=== PATIENT | female | born 1985 | race Caucasian/White ===

== ENCOUNTER 2018-01-31 22:58 | Emergency (ER) | payer MEDICAID, OTHER ==
[~2018-01-31] VITALS: Ht 172.7 cm; Wt 109.6 kg
[~2018-01-31 22:58] MED LIST: METF-414 PO
[2018-01-31 23:34] VITALS: BP 130/69
[2018-02-01] MEDS ORDERED: PREN-55 PO (01:01)
== END 2018-02-01 03:55 ==
LOC: ER 22:58
DX: R30.9 Painful micturition, unspecified (principal); R10.2 Pelvic and perineal pain; E11.9 Type 2 diabetes mellitus without complications; Z90.49 Acquired absence of other specified parts of digestive tract
CPT/HCPCS: 99281; 99285

== ENCOUNTER 2018-02-01 00:51 | Observation (INO) | payer MEDICAID ==
[~2018-02-01] VITALS: Ht 160.4 cm; Wt 94.3 kg
[2018-02-01] MEDS ORDERED: PREN-55 PO (01:01)
[2018-02-01] MEDS ORDERED: DOCUSATE SODIUM 100MG CAPSULE PO NR (02:15)
[2018-02-01] MEDS ORDERED: BISACODYL 10MG SUPP PR NR (03:00)
[2018-02-01] MEDS: LACTATED RINGERS 1,000 ML IV SCH ×2 (03:14→07:19)
[2018-02-01 05:14] LABS: CLARITY URINE CLEAR (CLEAR); COLOR URINE YELLOW (YELLOW); KETONES URINE 1+ (NEGATIVE); LEUKOCYTE ESTERASE URINE 1+ (NEGATIVE); NITRITE URINE POSITIVE (NEGATIVE); OCCULT BLOOD URINE TRACE (NEGATIVE); PH URINE 5.5 (4.5-8.0); PROTEIN URINE NEGATIVE (NEGATIVE); SPECIFIC GRAVITY URINE 1.028 (1.005-1.030)
[2018-02-01] MEDS ORDERED: CEFAZOLIN 1000MG PREMIX 50 ML IV ONE (07:00)
== END 2018-02-01 10:51 | disposition home or self-care (01) ==
LOC: L&D 00:51
PROVIDERS: ADMIT Obstetrics & Gynecology; ATTEND Obstetrics & Gynecology
DX: O99.613 Diseases of the digestive system complicating pregnancy, third trimester (principal); K59.00 Constipation, unspecified; O26.893 Other specified pregnancy related conditions, third trimester; R39.198 Other difficulties with micturition; Z3A.31 31 weeks gestation of pregnancy
CPT/HCPCS: 81003; 82962; 96365; 99281; G0378; J0690; 96360; 96361; J7120

== ENCOUNTER 2018-03-30 06:29 | Inpatient (IN) | payer OTHER, MEDICAID ==
[~2018-03-30] VITALS: Ht 172.7 cm; Wt 112.5 kg
[~2018-03-30 06:29] MED LIST changes: -METF-414 PO; +PREN-55 PO
[2018-03-30] MEDS ORDERED: EPHEDRINE SULFATE 50MG/ML VIAL ONE (08:05)
[2018-03-30] MEDS ORDERED: PHENYLEPHRINE HCL 10 MG/ML 1ML (IV VIAL) IV ONE (08:05)
[2018-03-30] MEDS ORDERED: OXYTOCIN 10 UNITS/ML 1ML ONE ×2 (08:05→10:22)
[2018-03-30] MEDS ORDERED: ONDANSETRON HCL 4MG/2ML INJ ONE (08:05)
[2018-03-30] MEDS ORDERED: FENTANYL CITRATE/PF 50MCG/ML 2ML VIAL ONE (08:05)
[2018-03-30] MEDS ORDERED: LACTATED RINGERS 1,000 ML IV SCH ×2 (08:05→13:45)
[2018-03-30] MEDS ORDERED: GLYCOPYRROLATE 0.2 MG/ML 2ML VIAL ONE (08:05)
[2018-03-30] MEDS ORDERED: MORPHINE SULFATE/PF 1MG/ML 10ML AMP ONE (08:05)
[2018-03-30] MEDS ORDERED: BUPIVACAINE HCL/DEXTROSE/PF 0.75% 2ML AMP INJ ONE (08:06)
[2018-03-30] MEDS ORDERED: SODIUM CHLORIDE 0.9% 10ML VIAL ONE (08:06)
[2018-03-30] MEDS ORDERED: CEFAZOLIN 2000MG PREMIX 50 ML IV ONE ×2 (08:06→08:14)
[2018-03-30] MEDS ORDERED: NALOXONE HCL 0.4 MG/ML 1ML VIAL IM PRN (08:15)
[2018-03-30 09:00] LABS: BASOPHILS % 0.5 % (0.0-2.0); EOSINOPHILS % 0.5 % (0.0-5.0); HEMATOCRIT. 34.9 % (36.0-48.0); HEMOGLOBIN. 11.3 g/dL (12.0-16.0); LYMPHOCYTES % 19.7 % (20.0-50.0); MEAN CORPUSCULAR HEMOGLOBIN 24.3 pg (28.0-32.0); MEAN CORPUSCULAR VOLUME 75.5 fL (81.0-99.0); MEAN PLATELET VOLUME 9.2 fl (7.4-10.4); NEUTROPHILS % 73.3 % (40.0-76.0); PLATELET 218 x1000/uL (130-400); RED BLOOD CELL COUNT 4.62 mill/uL (4.2-5.4)
[2018-03-30 09:08] LABS: PARTIAL THROMBOPLASTIN TIME 31.6 sec (23.4-31.0); PROTHROMBIN TIME 9.9 sec (9.1-11.1)
[2018-03-30 09:16] LABS: *AMPHETAMINES SCREEN URINE NEGATIVE (NEGATIVE); *BARBITURATES SCREEN URINE NEGATIVE (NEGATIVE); *BENZODIAZEPINES SCREEN URINE NEGATIVE (NEGATIVE)
[2018-03-30 09:17] LABS: *COCAINE SCREEN URINE NEGATIVE (NEGATIVE); METHADONE URINE SCREEN NEGATIVE (NEGATIVE); OPIATES URINE SCREEN NEGATIVE (NEGATIVE)
[2018-03-30 09:18] LABS: CANNABINOID URINE SCREEN NEGATIVE (NEGATIVE); PHENCYCLIDINE URINE SCREEN NEGATIVE (NEGATIVE)
[2018-03-30] MEDS ORDERED: KETOROLAC 60MG/2ML VIAL IM ONE (10:24)
[2018-03-30] MEDS ORDERED: DIPHENHYDRAMINE 50MG/ML VIAL ONE (10:34)
[2018-03-30] MEDS ORDERED: IBUPROFEN 400MG TABLET PO PRN (11:00)
[2018-03-30] MEDS ORDERED: HYDROMORPHONE HCL/PF 2MG/ML CPJ IM PRN (11:00)
[2018-03-30] MEDS ORDERED: RHO(D) IMMUNE GLOBULIN 300 MCG/SYR IM PRN (11:00)
[2018-03-30] MEDS ORDERED: BISACODYL 10MG SUPP PR PRN (11:00)
[2018-03-30] MEDS ORDERED: KETOROLAC 30MG/ML VIAL IV PRN (11:30)
[2018-03-30] MEDS ORDERED: BUTORPHANOL TARTRATE 2 MG/ML VIAL IV PRN (11:30)
[2018-03-30] MEDS ORDERED: DIPHENHYDRAMINE 50MG/ML VIAL IV PRN (11:30)
[2018-03-30] MEDS ORDERED: BUTORPHANOL TARTRATE 2 MG/ML VIAL IM PRN (11:30)
[2018-03-30] MEDS ORDERED: NALOXONE HCL 0.4 MG/ML 1ML VIAL IV PRN (11:30)
[2018-03-30 12:49] LABS: HEPATITIS B SURFACE ANTIGEN NEGATIVE
[2018-03-30] MEDS ORDERED: CITRIC ACID/SODIUM CITRATE SOLN 30ML UDC PO NR (13:05)
[2018-03-30 13:30] VITALS: BP 135/78
[2018-03-30 14:00] VITALS: BP 127/81
[2018-03-30] MEDS ORDERED: OXYTOCIN 20 UNITS in LACTATED RINGERS 1,000 ML IV SCH (16:15)
[2018-03-31] VITALS: BP 111/66
[2018-03-31 04:28] VITALS: BP 115/72
[2018-03-31 08:00] VITALS: BP 140/78
[2018-03-31 08:05] LABS: BASOPHILS % 0.6 % (0.0-2.0); EOSINOPHILS % 0.6 % (0.0-5.0); HEMATOCRIT. 28.3 % (36.0-48.0); HEMOGLOBIN. 9.4 g/dL (12.0-16.0); LYMPHOCYTES % 17.2 % (20.0-50.0); MEAN CORPUSCULAR VOLUME 75.1 fL (81.0-99.0); MEAN PLATELET VOLUME 9.5 fl (7.4-10.4); MONOCYTES % 5.7 % (2.0-8.0); NEUTROPHILS % 75.9 % (40.0-76.0); PLATELET 195 x1000/uL (130-400); RED BLOOD CELL COUNT 3.77 mill/uL (4.2-5.4); RED CELL DISTRIBUTION WIDTH 16.1 % (11.6-14.6)
[2018-03-31 08:14] LABS: CHLORIDE 105 mEq/L (98-107)
[2018-03-31] MEDS: ACETAMINOPHEN WITH CODEINE 300/30MG TABLET PO PRN (11:09)
[2018-03-31 16:00] VITALS: BP 147/94
[2018-03-31 20:00] VITALS: BP 130/80
[2018-04-01] VITALS: BP 135/80
[2018-04-01 07:38] VITALS: BP 125/84
[2018-04-01] MEDS: IBUPROFEN 800MG TABLET PO PRN ×2 (09:29→18:12)
[2018-04-01 16:05] VITALS: BP 123/69
[2018-04-01 19:30] VITALS: BP 143/93
[2018-04-01] MEDS: ACETAMINOPHEN WITH CODEINE 300/30MG TABLET PO PRN (20:46)
[2018-04-02] VITALS: BP 141/87
[2018-04-02 04:00] VITALS: BP 140/86
[2018-04-02 08:58] VITALS: BP 140/87
[2018-04-02] MEDS: IBUPROFEN 800MG TABLET PO PRN (12:19)
== END 2018-04-02 15:00 | disposition home or self-care (01) | DRG 788 ==
LOC: 8 EST LDRP 06:29 → OBSVTOIN 06:29 → 8EST 15:48
PROVIDERS: ADMIT Obstetrics & Gynecology; ATTEND Obstetrics & Gynecology
PROC: 10D00Z1 Extraction of Products of Conception, Low, Open Approach (ICD-10-PCS; principal; 2018-03-30)
DX: O99.214 Obesity complicating childbirth (principal); O34.211 Maternal care for low transverse scar from previous cesarean delivery; Z3A.39 39 weeks gestation of pregnancy; Z37.0 Single live birth; O90.81 Anemia of the puerperium; O24.92 Unspecified diabetes mellitus in childbirth; D64.9 Anemia, unspecified; Z79.4 Long term (current) use of insulin; Z82.49 Family history of ischemic heart disease and other diseases of the circulatory system; Z83.3 Family history of diabetes mellitus
CPT/HCPCS: 36415; 80305; 82947; 82962; 85384; 86592; 86703; 86762; 86850; 86900; 87340; 88307; 99281; J0690; J1200; J1885; J2274; J2370; J2405; J3010; J3490; J7120; A4315